=== PATIENT | female | born 1950 | race Caucasian/White ===

== ENCOUNTER 2018-12-09 14:49 | Emergency (ER) | payer MEDICARE, OTHER ==
[2018-12-09 15:11] VITALS: BP 179/85
--- NOTE | 2018-12-09 17:19 | ED Physician Documentation ---
History of Present Illness - Stated complaint Stated Complaint: L ARM IRRITATION - Chief complaint Chief Complaint: Wound - History obtained from History obtained from: Patient - Additonal information Additional information: Patient is a left-handed 67-year-old female with history of rheumatoid arthritis currently receiving immunosuppression therapy of methotrexate Presenting with concern for swelling, erythema, blistering and drainage from the left arm.She reports several days ago she felt as if she may have suffered a bite or insect sting that progressively became more painful, swollen, red, blistering and weeping. Patient denies fever, vomiting, diarrhea, urinary changes, or other complaints. No significant change in sensation, strength, range of motion to the hand or arm. No other improving or worsening factors noted. Review of Systems Constitutional: denies: Fever Skin: reports: Rash, Bite / sting Musculoskeletal: reports: Extremity pain, Extremity swelling Neurologic: denies: Focal weakness, Numbness PD PAST MEDICAL HISTORY - Past Medical History Past Medical History: Yes Cardiovascular: High cholesterol, Arrhythmia Endocrine/Autoimmune: Other (RA) - Past Surgical History Past Surgical History: Yes Ortho: Shoulder arthroplasty - Present Medications Home Medications: Ambulatory Orders Medication Instructions Recorded Confirmed Cephalexin [Keflex] 500 mg PO Q6H #28 capsule 12/09/18 Sulfamethox/Trimeth 800/160 1 each PO BID #14 tablet 12/09/18 [Bactrim Ds 800/160] - Allergies Allergies/Adverse Reactions: Allergies Allergy/AdvReac Type Severity Reaction Status Date / Time rituximab [From Rituxan] Allergy Anaphylaxis Verified 12/09/18 15:02 PD ED PE NORMAL - Vitals Vital signs reviewed: Yes - General General: Alert and oriented X 3, No acute distress - HEENT HEENT: Atraumatic, Moist mucous membranes - Neck Neck: Supple, no meningeal sign - Cardiac Cardiac: Strong equal pulses - Respiratory Respiratory: No respiratory distress - Derm Derm: Other (Diffuse erythema, swelling, warmth to the left forearm without involving wrist or elbow and small area of blistering and friable skin to the distal ventral aspect of the left forearm with serous drainage present.) - Extremities Extremities: No deformity, No tenderness to palpate, Normal ROM s pain - Neuro Neuro: Alert and oriented X 3, No motor deficit, No sensory deficit - Psych Psych: Normal mood, Normal affect Results - Vitals Vitals: Vital Signs - 24 hr 08/09/19 14:59 Temperature 36.4 C L Heart Rate 59 L Respiratory 16 Rate Blood Pressure 179/85 H O2 Saturation 97 Oxygen O2 Source Room air PD MEDICAL DECISION MAKING - ED course Complexity details: re-evaluated patient, considered differential, d/w patient ED course: Patient reports possible insect bite or sting as the initial injury but it is still unclear. Patient does report itchiness, however, no hives or other rash to indicate specific allergic reaction. Itchiness may also be from significant swelling. Patient does have breakdown of skin that is friable and blistering, as well as diffuse swelling and erythema concerning for cellulitis, particularly as it is extremely warm to the touch. Patient is also susceptible to infection given her RA status. Discussed allergic versus infectious pathology and treatment for such. Decided that patient may continue Benadryl as needed for allergic component and itching, but feel most appropriate to treat for cellulitis with oral antibiotics. Do not feel patient is appropriate for steroids given concern for infection, as well as her RA status. Also discussed other supportive cares, strict return precautions, and appropriate follow-up. Patient voiced understanding and is comfortable with discharge plan. Departure - Departure Disposition: 01 Home, Self Care Clinical Impression: Cellulitis Qualifiers: Site of cellulitis: extremity Site of cellulitis of extremity: upper extremity Laterality: left Qualified Code(s): L03.114 - Cellulitis of left upper limb Condition: Good Instructions: ED Infec Skin Cellulitis Follow-Up: your,doctor [Other] - Within 3 Days Prescriptions: Cephalexin [Keflex] 500 mg PO Q6H #28 capsule Sulfamethox/Trimeth 800/160 [Bactrim Ds 800/160] 1 each PO BID #14 tablet Comments: Please continue home medications as previously instructed. Please take antibiotics as prescribed to treat likely skin infection. Recommend taking antibiotics with a small amount of food to avoid upset stomach. Also recommend elevation and ice application to reduce swelling. Please follow-up with primary care physician in next 2 to 3 days and return to ED sooner if experience worsening symptoms or have other concerns.
== END 2018-12-09 18:24 | disposition home or self-care (01) ==
LOC: ED 14:49
DX: L03.114 Cellulitis of left upper limb (principal); M06.9 Rheumatoid arthritis, unspecified
CPT/HCPCS: 99282; 99284